=== PATIENT | female | born 1985 | race Two or more races ===

== ENCOUNTER 2020-09-18 16:33 | Inpatient (IN) | payer MEDICAID ==
[~2020-09-18] VITALS: Ht 154.9 cm; Wt 67.0 kg
[2020-09-18 17:20] LABS: Basophils # (auto) 0.1 10 ^3/uL (0-0.2); Basophils % (auto) 0.5 % (0.0-2.0); Eosinophils # (auto) 0.1 10 ^3/uL (0-0.8); Eosinophils % (auto) 1.5 % (0.0-7.0); Hematocrit 40.2 % (36.0-46.0); Hemoglobin 13.5 g/dL (12.2-16.2); Lymphocytes # (auto) 3.5 10 ^3/uL (0.4-5.4); Lymphocytes % (auto) 36.2 % (10.0-50.0); Mean Corpuscular Hgb Conc. 33.5 g/dL (32.0-36.0); Mean Corpuscular Volume 83.6 fL (80.0-100.0); Monocytes # (auto) 0.5 10 ^3/uL (0-1.3); Monocytes % (auto) 4.9 % (0.0-12.0); Neutrophils # (auto) 5.5 10 ^3/uL (1.6-8.6); Neutrophils % (auto) 56.9 % (37.0-80.0); Platelet Count (auto) 233 10^3/uL (140-450); Red Blood Cells 4.81 10^6/uL (4.0-5.20); White Blood Cell 9.6 10^3/uL (4.4-10.8)
[2020-09-18 17:33] LABS: INR 0.98 (0.9-1.15); Partial Thromboplastin Time 30.3 sec (23.0-31.2)
[2020-09-18 17:43] LABS: Albumin 3.7 g/dL (3.4-5.0); Anion Gap 8 (5-15); Blood Urea Nitrogen 13 mg/dL (7-18); Calcium 8.6 mg/dL (8.5-10.1); Carbon Dioxide 23 mmol/L (21-32); Chloride 110 mmol/L (98-107); Potassium 3.9 mmol/L (3.5-5.1); Sodium 141 mmol/L (136-145)
[2020-09-18 17:47] LABS: Alanine Aminotransferase 36 U/L (13-56); Aspartate Aminotransferase 25 U/L (15-37); GFR African American 133 mL/min; GFR Non-African American 110 mL/min; Glucose 85 mg/dL (74-106)
[2020-09-18 17:49] LABS: Alkaline Phosphatase 80 U/L (45-117); Total Protein 7.9 g/dL (6.4-8.2)
[2020-09-18] MEDS ORDERED: LABETALOL HCL 5 MG/ML 4ML SYRINGE IV PRN (19:15)
[2020-09-18] MEDS ORDERED: NITROGLYCERIN 0.4 MG SL TAB SL PRN (19:15)
[2020-09-18] MEDS ORDERED: DOCUSATE CALCIUM 240 MG CAP PO PRN (19:15)
[2020-09-18] MEDS ORDERED: FUROSEMIDE 40 MG/4 ML VIAL IV ONE (19:15)
[2020-09-18] MEDS ORDERED: ONDANSETRON HCL 4 MG/2 ML VIAL IV PRN (19:15)
[2020-09-18] MEDS ORDERED: MORPHINE SULF INJ 2 MG/ML SYRINGE 1ML IV PRN ×2 (19:15)
[2020-09-18] MEDS ORDERED: ACETAMINOPHEN 500 MG TAB PO PRN (19:15)
[2020-09-18] MEDS ORDERED: acetaZOLAMIDE SODIUM 500 MG VL IV ONE (19:15)
[2020-09-18] MEDS ORDERED: LORazepam 0.5 MG TAB PO PRN (19:15)
[2020-09-18 20:07] LABS: Urine Bacteria FEW /hpf (None Seen); Urine Blood Negative /uL (Negative); Urine Specific Gravity 1.014 (1.001-1.035); Urine WBC 64 /hpf (0 - 5)
[2020-09-18 22:00] VITALS: BP 105/71
[2020-09-18] MEDS ORDERED: KEP500T PO (23:20)
[2020-09-18] MEDS ORDERED: OMEG1CAP59 PO (23:20)
[2020-09-18] MEDS ORDERED: LEVO100T8 PO (23:20)
[2020-09-18] MEDS ORDERED: NIAC500T71 PO (23:20)
[2020-09-18] MEDS: methylPREDNISolone SOD SUCC 125 MG/2 ML VL IV SCH (23:27)
[2020-09-19 05:10] VITALS: BP 113/70
[2020-09-19 05:24] LABS: Basophils # (auto) 0 10 ^3/uL (0-0.2); Basophils % (auto) 0.2 % (0.0-2.0); Eosinophils # (auto) 0 10 ^3/uL (0-0.8); Eosinophils % (auto) 0.1 % (0.0-7.0); Hematocrit 42.4 % (36.0-46.0); Hemoglobin 14.1 g/dL (12.2-16.2); Lymphocytes # (auto) 1.3 10 ^3/uL (0.4-5.4); Lymphocytes % (auto) 13.1 % (10.0-50.0); Mean Corpuscular Hemoglobin 27.5 pg (28.0-32.0); Mean Corpuscular Hgb Conc. 33.2 g/dL (32.0-36.0); Mean Corpuscular Volume 82.8 fL (80.0-100.0); Monocytes # (auto) 0.1 10 ^3/uL (0-1.3); Monocytes % (auto) 0.7 % (0.0-12.0); Neutrophils # (auto) 8.4 10 ^3/uL (1.6-8.6); Neutrophils % (auto) 85.9 % (37.0-80.0); Platelet Count (auto) 247 10^3/uL (140-450); Red Blood Cells 5.12 10^6/uL (4.0-5.20); Red Cell Distribution Width 15.9 % (11.8-14.3); White Blood Cell 9.8 10^3/uL (4.4-10.8)
[2020-09-19 05:52] LABS: Calcium 9.2 mg/dL (8.5-10.1); Potassium 3.7 mmol/L (3.5-5.1)
[2020-09-19 05:58] LABS: BUN/Creatinine Ratio 18.4; Bilirubin, Total 1.4 mg/dL (0.2-1.0); Total Protein 8.5 g/dL (6.4-8.2)
[2020-09-19 08:00] VITALS: BP 110/69
[2020-09-19 09:00] VITALS: BP 110/69
[2020-09-19] MEDS: levETIRAcetam 500 MG TAB PO SCH ×2 (09:21→22:06)
[2020-09-19] MEDS: methylPREDNISolone SOD SUCC 125 MG/2 ML VL IV SCH ×2 (09:21→22:06)
[2020-09-19] MEDS: PANTOPRAZOLE 40 MG TAB PO SCH (09:21)
[2020-09-19 13:00] VITALS: BP 117/74
[2020-09-19 17:00] VITALS: BP 109/75
[2020-09-19] MEDS ORDERED: LORazepam 2MG/ML-1ML VIAL IV PRN (23:15)
[2020-09-19 23:42] VITALS: BP 120/85
[2020-09-20 05:08] VITALS: BP 113/70
[2020-09-20 08:00] VITALS: BP 119/75
[2020-09-20 08:54] VITALS: BP 119/75
[2020-09-20] MEDS: levETIRAcetam 500 MG TAB PO SCH ×2 (10:47→22:45)
[2020-09-20] MEDS: PANTOPRAZOLE 40 MG TAB PO SCH (10:47)
[2020-09-20] MEDS: methylPREDNISolone SOD SUCC 125 MG/2 ML VL IV SCH ×2 (10:47→22:44)
[2020-09-20] MEDS: cefTRIAXone 1GM/50ML D5W 50 ML IV SCH (10:48)
[2020-09-20 13:00] VITALS: BP 124/74
[2020-09-20 17:00] VITALS: BP 108/78
[2020-09-20 22:00] VITALS: BP 127/69
[2020-09-21 05:00] VITALS: BP 131/91
[2020-09-21 05:19] LABS: Basophils # (auto) 0 10 ^3/uL (0-0.2); Basophils % (auto) 0.1 % (0.0-2.0); Eosinophils # (auto) 0 10 ^3/uL (0-0.8); Hematocrit 41.5 % (36.0-46.0); Hemoglobin 13.8 g/dL (12.2-16.2); Lymphocytes # (auto) 1.6 10 ^3/uL (0.4-5.4); Lymphocytes % (auto) 8.4 % (10.0-50.0); Mean Corpuscular Hemoglobin 27.4 pg (28.0-32.0); Mean Corpuscular Hgb Conc. 33.2 g/dL (32.0-36.0); Mean Corpuscular Volume 82.4 fL (80.0-100.0); Monocytes # (auto) 0.3 10 ^3/uL (0-1.3); Monocytes % (auto) 1.6 % (0.0-12.0); Neutrophils # (auto) 16.7 10 ^3/uL (1.6-8.6); Neutrophils % (auto) 89.9 % (37.0-80.0); Platelet Count (auto) 258 10^3/uL (140-450); Red Blood Cells 5.04 10^6/uL (4.0-5.20); Red Cell Distribution Width 16.3 % (11.8-14.3); White Blood Cell 18.6 10^3/uL (4.4-10.8)
[2020-09-21 05:38] LABS: BUN/Creatinine Ratio 42.9; Calcium 9.1 mg/dL (8.5-10.1); Magnesium 2.3 mg/dL (1.6-2.6); Potassium 4.1 mmol/L (3.5-5.1)
[2020-09-21 09:00] VITALS: BP 115/75
[2020-09-21] MEDS: cefTRIAXone 1GM/50ML D5W 50 ML IV SCH (10:57)
[2020-09-21] MEDS: PANTOPRAZOLE 40 MG TAB PO SCH (10:58)
[2020-09-21] MEDS: methylPREDNISolone SOD SUCC 125 MG/2 ML VL IV SCH ×2 (10:58→22:11)
[2020-09-21] MEDS: levETIRAcetam 500 MG TAB PO SCH ×2 (10:58→22:11)
[2020-09-21 13:00] VITALS: BP 118/73
[2020-09-21 16:54] VITALS: BP 122/77
[2020-09-21 22:00] VITALS: BP 103/77
[2020-09-22 05:00] VITALS: BP 128/70
[2020-09-22 09:00] VITALS: BP 125/89
[2020-09-22] MEDS: cefTRIAXone 1GM/50ML D5W 50 ML IV SCH (09:40)
[2020-09-22] MEDS: methylPREDNISolone SOD SUCC 125 MG/2 ML VL IV SCH ×2 (09:40→22:00)
[2020-09-22] MEDS: PANTOPRAZOLE 40 MG TAB PO SCH (09:40)
[2020-09-22] MEDS: levETIRAcetam 500 MG TAB PO SCH ×2 (09:41→22:00)
[2020-09-22] MEDS ORDERED: LIDOCAINE 2%HCL (LOCAL ANESTH.) INJ 20ML MDV ONE (10:12)
[2020-09-22 12:08] LABS: Basophils # (auto) 0.1 10 ^3/uL (0-0.2); Basophils % (auto) 0.4 % (0.0-2.0); Eosinophils # (auto) 0 10 ^3/uL (0-0.8); Hematocrit 41.3 % (36.0-46.0); Hemoglobin 13.7 g/dL (12.2-16.2); Lymphocytes # (auto) 1.9 10 ^3/uL (0.4-5.4); Lymphocytes % (auto) 11.8 % (10.0-50.0); Mean Corpuscular Hgb Conc. 33.1 g/dL (32.0-36.0); Mean Corpuscular Volume 81.4 fL (80.0-100.0); Monocytes # (auto) 0.7 10 ^3/uL (0-1.3); Monocytes % (auto) 4.2 % (0.0-12.0); Neutrophils # (auto) 13.4 10 ^3/uL (1.6-8.6); Neutrophils % (auto) 83.6 % (37.0-80.0); Platelet Count (auto) 253 10^3/uL (140-450); Red Blood Cells 5.07 10^6/uL (4.0-5.20); Red Cell Distribution Width 16.3 % (11.8-14.3)
[2020-09-22 13:00] VITALS: BP 122/84
[2020-09-22 13:32] LABS: Protein, CSF 35.9 mg/dL (15-45)
[2020-09-22 13:36] LABS: CSF White Blood Cells 2 CUMM (0-5)
[2020-09-22 17:00] VITALS: BP 119/75
[2020-09-22 17:15] VITALS: BP 119/75
[2020-09-22 22:00] VITALS: BP 133/88
[2020-09-22] MEDS: acetaZOLAMIDE 250 MG TAB PO SCH (22:00)
[2020-09-23 05:00] VITALS: BP 101/83
[2020-09-23 09:00] VITALS: BP 114/83
[2020-09-23] MEDS: methylPREDNISolone SOD SUCC 125 MG/2 ML VL IV SCH (10:00)
[2020-09-23] MEDS: cefTRIAXone 1GM/50ML D5W 50 ML IV SCH (10:00)
[2020-09-23] MEDS: levETIRAcetam 500 MG TAB PO SCH (10:04)
[2020-09-23] MEDS: acetaZOLAMIDE 250 MG TAB PO SCH (10:04)
[2020-09-23] MEDS: PANTOPRAZOLE 40 MG TAB PO SCH (10:04)
[2020-09-23 13:00] VITALS: BP 116/76
== END 2020-09-23 15:48 | disposition home or self-care (01) | DRG 58 ==
LOC: ER 16:33 → TELE 19:01 → TELE-CENTR 21:13
PROVIDERS: ADMIT Family Medicine; ATTEND Hospitalist
PROC: 009U3ZX Drainage of Spinal Canal, Percutaneous Approach, Diagnostic (ICD-10-PCS; principal; 2020-09-22)
PROC: B01B1ZZ Fluoroscopy of Spinal Cord using Low Osmolar Contrast (ICD-10-PCS; 2020-09-22)
DX: G93.2 Benign intracranial hypertension (principal); E03.9 Hypothyroidism, unspecified; E78.00 Pure hypercholesterolemia, unspecified; E78.5 Hyperlipidemia, unspecified; F17.200 Nicotine dependence, unspecified, uncomplicated; F70 Mild intellectual disabilities; G40.909 Epilepsy, unspecified, not intractable, without status epilepticus; N39.0 Urinary tract infection, site not specified; Z86.73 Personal history of transient ischemic attack (TIA), and cerebral infarction without residual deficits; Z82.49 Family history of ischemic heart disease and other diseases of the circulatory system; Z20.822 Contact with and (suspected) exposure to COVID-19
CPT/HCPCS: 36415; 62272; 70450; 70545; 70551; 80048; 80053; 81001; 82945; 83735; 84157; 84443; 84702; 85025; 85049; 85610; 85730; 87426; 89051; 96374; 96375; G0378; J0696